=== PATIENT | female | born 1990 | race Two or more races ===

== ENCOUNTER 2019-03-08 21:05 | Emergency (ER) | payer MEDICAID ==
[~2019-03-08] VITALS: Ht 190.5 cm; Wt 136.1 kg
[2019-03-08 21:25] VITALS: BP 148/79
== END 2019-03-09 04:29 | disposition left against medical advice (07) ==
LOC: ER 21:10
DX: M79.603 Pain in arm, unspecified (principal); Z53.21 Procedure and treatment not carried out due to patient leaving prior to being seen by health care provider

== ENCOUNTER 2024-03-17 16:26 | Emergency (ER) | payer MEDICAID ==
[~2024-03-17] VITALS: Ht 160 cm; Wt 122.9 kg
[2024-03-17 18:20] VITALS: BP 136/61; PULSE 70; RESP 16; TEMP 98.1; O2SAT 100
--- NOTE | 2024-03-17 19:01 | ED.PDOC ---
History of Present Illness(SKN HPI Comments 33 year old female presents to ER with complaints of wound check. Patient states she at a laparoscopic surgical procedure done yesterday morning by her OBGYN for an "attempt" to remove her "fallopian tubes" and reports that she noticed drainage to two of the four incision sites of lower abdomen today and presents to ER today for wound check. She reports mild tenderness located to incision sites of lower abdomen. Patient presents to ER ambulatory on arrival with steady gait, in no distress and notes she does have a f/u with her OBGYN in "2 weeks". Denies fever, body aches, chills, n/v, pelvic pain, changes in urination/bm or any further symptoms/complaints Chief Complaint: Wound Check Time Seen by MD: 18:59 Primary Care Provider: UNKNOWN History of Present Illness: Nurses Notes, Medications, Allergies Allergies: Coded Allergies: NO KNOWN ALLERGIES (Unverified , 03/08/19) Information Source: Patient Mode of Arrival: Ambulatory Past Medical History PAST MEDICAL HISTORY: Asthma Surgical History (Other): LAPAROSCOPIC ABDOMINAL PROCEDURE-03/16/2024 Family History Family History: Unknown Social History Smoker: Non-Smoker Alcohol: Denies ETOH Use Drugs: Denies Drug Use Lives In: Home Constitutional: denies: chills, diaphoresis, fatigue, fever, malaise, sweats, weakness, others EENTM: denies: blurred vision, double vision, ear bleeding, ear discharge, ear drainage, ear pain, ear ringing, eye pain, eye redness, hearing loss, mouth pain, mouth swelling, nasal discharge, nose bleeding, nose congestion, nose pain, photophobia, tearing, throat pain, throat swelling, voice changes, others Respiratory: denies: cough, hemoptysis, orthopnea, SOB at rest, shortness of breath, SOB with excertion, stridor, wheezing, others Cardiovascular: denies: chest pain, dizzy spells, diaphoresis, Dyspnea on exertion, edema, irregular heart beat, left arm pain, lightheadedness, palpitations, PND, syncope, others Gastrointestinal: reports: others ( STATED IN HPI) Genitourinary: denies: abnormal vagina bleeding, burning, dyspareunia, dysuria, flank pain, frequency, hematuria, incontinence, pain, , vagina discharge, urgency, others Neurological: denies: dizziness, fainting, headache, left sided numbness, left sided weakness, numbness, paresthesia, pre-existing deficit, right sided numbness, right sided weakness, seizure, speech problems, tingling, tremors, weakness, others Musculoskeletal: denies: back pain, gout, joint pain, joint swelling, muscle pain, muscle stiffness, neck pain, others Integumetry: reports: others ( STATED IN HPI) Allergic/Immunocompromised: denies: Difficulty Healing, Frequent Infections, Hives, Itching, others Hematologic/Lymphatic: denies: anemia, blood clots, easy bleeding, easy br uising, swollen glands, others Endocrine: denies: excessive hunger, excessive sweating, excessive thirst, excessive urination, flushing, intolerance to cold, intolerance to heat, unexplained weight gain, unexplained weight loss, others Psychiatric: denies: anxiety, bipolar disorder, depression, hopeless, panic disorder, schizophrenia, sleepless, suicidal, others Physical Exam General Appearance: No Apparent Distress HEENT: PERRL/EOMI Neck: Full Range of Motion, Non-Tender, Normal Respiratory: Chest Non-Tender, Lungs Clear, No Accessory Muscle Use, No Respiratory Distress, Normal Breath Sounds Cardiovascular: No Murmur, No Gallop, Regular Rate/Rhythm Breast Exam: Deferred Gastrointestinal: No Organomegaly, No Pulsatile Mass, Normal Bowel Sounds, Soft, Other (1- 1 cm wound dehiscence noted to laparoscopic incision site on right lower abdomen with mild surrounding ecchymosis/TTP, no bleeding/drainage noted. 3 other 1 cm healing incision sites with dermabond on lower abdomen noted with minimal surrounding ecchymosis /TTP. No signs of infection noted. No re bound/guarding noted) Genitalia: Deferred Pelvic: Deferred Rectal: Deferred Extremities: Normal capillary refill, Normal range of motion Neurologic: Alert, chief embalmer II-XII nml as Tested, No Motor Deficits, Normal Affect, Normal Mood, No Sensory Deficits Cerebellar Function: Normal Reflexes: Normal Skin: Dry, Warm Peripheral Pulses: 2+ Radial (R), 2+ Radial (L), 2+ Brachial (R), 2+ Brachial (L) Lymphatic: No Adenopathy Was a procedure done? Was a procedure done?: No Sedation Sedation?: No Differential Diagnosis (INTG) Differential Diagnosis: Abrasion Differential Diagnosis: Abscess Differential Diagnosis: Neurovascular Injury, Other (Hemorrhage) Differential Diagnosis: Cellulitis X-Ray, Labs, Meds, VS Vital Signs Date Time Temp Pulse Resp B/P (MAP) Pulse Ox O2 Delivery O2 Flow Rate FiO2 03/17/24 18:20 98.1 70 16 136/61 (86) 100 98.1 03/17/24 16:39 98.1 70 16 136/61 (86) 100 Dermabond applied to wound dehiscence and no drainage from incision sites was noted prior to discharge Patient had improvement in symptoms and in no distress prior to discharge Wound care/cleaning discussed and advised Advised on rest/no strenuous activity Advised to follow up with PCP and OBGYN in 1-2 days Patient verbalized understanding and agreeable with current plan of care Advised to return to ER immediately if symptoms worsen Time of 1ST Reevaluation: 18:44 Reevaluation 1ST: N/A Patient Education/Counseling: Diagnosis, Treatment, Prognosis, Need For Follow Up Family Education/Counseling: No Family Present Departure 1 Departure Time of Disposition: 19:00 Impression: Primary Impression: Visit for wound check Additional Impression: Hx of laparoscopy Disposition: 01 HOME / SELF CARE / HOMELESS Condition: Stable Discharged With: Self Critical Care Note Critical Care Time?: No Stability Stability form required: No Heart Score Heart Score: Heart Score Response (Comments) Value History N/A 0 EKG N/A 0 Age N/A 0 Risk Factors N/A 0 Troponin N/A 0 Total 0 STACEY RICH Mar 17, 2024 19:01
== END 2024-03-17 19:18 | disposition home or self-care (01) ==
LOC: ER 16:30
DX: T81.49XA Infection following a procedure, other surgical site, initial encounter (principal); J45.909 Unspecified asthma, uncomplicated; Z98.890 Other specified postprocedural states